=== PATIENT | male | born 1960 | race Caucasian/White ===

== ENCOUNTER 2024-11-09 07:37 | Inpatient (IN) | payer BC, SELFPAY ==
[2024-11-08] VITALS (13 sets, daily range): BP systolic 150–191; BP diastolic 95–118; BMI 28.4
--- NOTE | 2024-11-08 07:20 | ED.GENMED ---
History of Present Illness
General
Chief Complaint: Numbness
Source: patient
Exam Limitations: none
Time Seen by Provider: 11/08/24 06:44
Nursing documentation reviewed up to this point in time: agreed with
History of Present Illness
History of Present Illness:
Patient with history of TIA on 81 mg aspirin daily, presents to ED after waking up this morning at 5:30 AM with recurrent right arm numbness sensation. Patient states that his arm feels as though he 'slept on it'. Denies fever or chills. Denies
headache. Denies neck pain. Denies dizziness. Denies blurred vision. Denies weakness. Denies difficulty with ambulation. Denies difficulty with speech or swallowing. Patient and spouse report that approximately 12 years ago, patient has
similar right arm numbness which progressed to slurred speech, and was diagnosed with TIA at that time. Patient has not had any recurrent symptoms since then. Patient medical history is significant for hypertension and patient is a daily smoker.
Denies recent illness. Denies recent change in medications or diet. Deny recent trauma. Denies change in level of activities.
Past History
Past History
ED Past Medical History: GERD, HTN and Hypercholesterolemia
ED Past Surgical History: Other (Noncontributory)
Social History
Tobacco: Smoker
Alcohol: Occasional
Drug: None
Personal:
Living: with family
Employment: Employed (social worker masters)
Family History
Family History: Other (Noncontributory)
Review of Systems
Review of Systems
Allergies reviewed?: Yes
All Other Systems: ROS reviewed and negative except as documented in HPI and ROS
Constitutional: Reports no symptoms
EENT: Reports no symptoms
Respiratory: Reports no symptoms
Cardiac: Reports no symptoms
ABD/GI: Reports no symptoms
Musculoskeletal: Reports no symptoms
Skin: Reports no symptoms
Neurological: Reports numbness
Phy Exam
Physical Exam
Physical Exam:
Physical Exam
General: no apparent distress, not acutely ill. afebrile
Head: nc/at. eomi
Neck: supple. no meningeal signs.
Heart: s1/s2 regular rate and rhythm, no murmur. equal radial pulses.
Lungs: no acute respiratory distress. clear bilaterally
Abdomen: normal bowel sounds. not tender.
Neuro: alert and oriented x 3. no focal sensory/motor deficit. normal speech. normal gait.
Skin: no rash
Psychiatric: well kept. interactive and cooperative
Extremities: no edema. no calf tenderness.
Course
Orders/Labs/Results
Orders:
Orders
11/08/24 07:05
CT Head W/o Iv Contrast Urgent
Comment:
Reason For Exam: RUE numbness
11/08/24 07:06
Electrocardiogram (*1) Urgent
Reason for Study: Vertigo / Dizzy
EKG- Treatment ONCE
11/08/24 07:12
NEUROLOGY CONSULT Urgent
Consulting Provider: Zeus Mathew
Was physician already notified: Yes
Reason for consult: RUE numbness
11/08/24 07:14
Complete Blood Count/No Diff Urgent
Comprehensive Metabolic Panel Urgent
Magnesium Urgent
11/08/24 09:35
Clopidogrel Bisulfate [Plavix] 300 mg PO NOW STA
11/08/24 09:36
MA Neck With Contrast Routine
Reason For Exam: stroke
OK for patient to be off Cardiac Monitoring for MRI: Yes
Recent pill cam endoscopy?: No
Pacemaker/Defibrillator?: No
Brain Aneurysm Clips?: No
Have you ever worked with metal? grinding metal? welding?: No
Cochlear(ear) implants?: No
Does Pt have a Temp Sensing Cath?: No
Does the patient have IV access?: Yes
Does the patient have any stents?: No
MR Brain Without Contrast Routine
Comment:
Reason For Exam: stroke, right arm ataxia
Recent pill cam endoscopy?: No
11/08/24 09:37
MA [place] Routine
Comment:
Reason For Exam: intracranial stenosis
Recent pill cam endoscopy?: No
11/08/24 11:02
Admit/Transfer Patient As Directed
Co-Sign Provider:
Level of Care: Observation services
Assign to:: Telemetry
Physician / Group: diallo/hospitalist
Diagnosis: RUE numbness. r/o CVA
Reason for Telemetry: CVA/TIA
Date to Stop Telemetry: 11/11/24
Time to Stop Telemetry: 11:00
11/08/24 11:03
PRN Pain Medication Management As Directed
May give lesser potent ordered pain med per pt: Yes
preference::
Protocol:: Medication orders for pain may be administered in a
manner that supports deferring to patient preference
when the pt is:
- Requesting an ordered lesser potent pain medication.
Least to most potent pain medications are defined
as: acetaminophen < NSAID < tramadol < opioids
(morphine, oxycodone, hydromorphone).
- Requesting a lesser dose of the same medication IF
ORDERED.
- Requesting a less intrusive route of administration
if both routes are prescribed by the provider (PO <
IV).
11/08/24 11:04
Code Status As Directed
Resuscitation Status: Full Code
11/08/24 Dinner
Cholesterol Lowering
At Your Request: Full Participation
Does patient need a safe tray?: No
11/08/24 15:20
Acetaminophen [Tylenol/Feverall] 650 mg RECTAL Q4HPRN PRN
Acetaminophen [Tylenol] 650 mg PO Q4HPRN PRN
11/08/24 15:20
Case Management Consult ONCE
Case Management Consult: Discharge Planning
Comment: stroke/tia
DIETARY CONSULT Routine
Reason for Consult: stroke/TIA
Disaster Director Urgent
Activity As Directed
Activity Level: Out of Bed-Early Mobility
NIH Stroke Scale As Directed
Directions: Per protocol
Comment: every shift and with any change in condition or mental status
Neurological Checks As Directed
Frequency: q4h
Additional Instructions:: q4h x 24h upon admission to the floor, then qshift & with any change in condition
and mental status
Patient Education As Directed
Type: Stroke education packet
Comment: provide to patient and family
Pneumatic Compression Sleeves As Directed
Type: Knee high
Swallow Screening CVA/TIA ONLY As Directed
Comment: NPO until swallowing screening completed
If patient FAILS swallow screening:: NPO, Speech Therapy consult, Aspiration Precautions
If patient PASSES swallow screening, diet:: Cholesterol Lowering
Above diet order entered?: Yes- passed screening
Vital Signs As Directed
Frequency: Per unit guidelines
Ot Eval And Treat Routine
Pt Eval And Treat Routine
Activity Level: Out of Bed-Early Mobility
Speech Therapy Eval & Treat Routine
DX Deep Vein Thrombosis Video Routine
11/08/24 16:00
Flush (0.9% Sodium Chloride) [Flush (Nss)] See Dose Instructions IV PER PROTOCOL
11/08/24 18:00
Atorvastatin [Lipitor] 40 mg PO QPM
11/08/24 22:00
Pantoprazole [Protonix] 40 mg PO HS
11/09/24 08:00
Aspirin Low Dose EC [Aspir Low (Enteric Coated)] 81 mg PO DAILY
Clopidogrel Bisulfate [Plavix] 75 mg PO DAILY
Labetalol [Trandate] 100 mg PO BID
Labetalol [Trandate] 200 mg PO BID
11/09/24 08:01
BMP [Basic Metabolic Panel] IN AM
CBC/With Diff [Complete Blood Count/With Diff] IN AM
Cardiovascular Evaluation IN AM
Glycohemoglobin (HgbA1c) IN AM
11/09/24 22:00
Amlodipine [Norvasc] 10 mg PO HS
Lisinopril [Zestril] 40 mg PO HS
11/11/24 11:00
DC Protocol for Telemetry ONCE
Abnormal Lab Results
11/08/24
07:14
MCH 31.1 H pg
(27.0-31.0)
Chloride 108 H mmol/L
(98-107)
BUN 25 H mg/dl
(9-20)
Creatinine 1.7 H mg/dL
(0.7-1.3)
Glucose 110 H mg/dl
(70-99)
11/08/24 07:14
11/08/24 07:14
Vital Signs
Initial and Last Documented VS:
Initial Vital Signs
Temp Pulse Resp BP Pulse Ox
98.0 F 78 16 150/109 98
11/08/24 06:34 11/08/24 06:34 11/08/24 06:34 11/08/24 06:34 11/08/24 06:34
Last Documented Vital Signs
Temp Pulse Resp BP Pulse Ox
97.8 F 78 16 144/96 98
11/09/24 15:26 11/09/24 15:26 11/09/24 15:26 11/09/24 15:26 11/09/24 15:26
MDM/Problems Addressed
MDM/Problems Addressed:
Patient presenting with subjective right upper extremity numbness, without focal objective deficit noted on exam. At the time of evaluation ED, patient with NIH stroke score of 0. Patient is not a candidate for tenecteplase treatment at this time.
Will place CT head without contrast order immediately and consult neurology for an evaluation.
CT head: No acute findings.
Patient evaluated in ED by Dr. Mathew, neurology. In light of patient's right upper extremity ataxia noted on exam, which is different from his previous presentation, does recommend admission to the hospitalist for further evaluation and treatment,
including starting aspirin and Plavix load.
*EKG
Interpreted by ED Provider?: Yes
EKG Intrepretation Date: 11/08/24
Heart Rate: 77
Rate: normal
Rhythm: sinus
[place]: normal axis
*Critical Care Note
Total Time (30-74mins, 75-104mins- exclusive of procedures): Not Applicable
ED Attending Note
-
Portions of this chart may have been created with voice recognition software.� Occasional wrong word or��sound alike� substitutions may have occurred due to the inherent limitations of voice recognition software.
Discharge Plan
Departure
Patient Disposition: Admit
Date of Disposition: 11/08/24
Time of Disposition: 09:20
Admit to: Telemetry
Presentation/result/management discussed w/ accepting MD/DO: Hospitalist
Discharge Problem:
Ataxia of upper extremity
Interventions
Interventions:
*General Assessment Last Done: 11/08/24 06:34
*Neglect/Abuse Screening Last Done: 11/08/24 07:17
*ED COVID-19 Vaccine History Last Done: 11/08/24 06:34
*Nursing Disposition Last Done: 11/08/24 15:11
ED- Neurological Assessment Last Done: 11/08/24 12:08
Discharge Date and Time
Discharge Date/Time: 11/08/24 15:13
[2024-11-08 07:41] LABS: ALT (SGPT) 17 U/L (0-50); AST (SGOT) 21 U/L (17-59); Albumin 3.8 g/dl (3.5-5.0); Alkaline Phosphatase 97 U/L (38-126); Blood Urea Nitrogen 25 mg/dl (9-20); Carbon Dioxide 25 mmol/L (22-30); Chloride 108 mmol/L (98-107); Estimated Creatinine Clearance 50 ml/min; Glucose 110 mg/dl (70-99); Hematocrit 44.2 % (39.0-52.0); Hemoglobin 15.4 g/dL (13.0-18.0); Magnesium 1.7 mg/dl (1.6-2.3); Mean Corp Hgb Conc. 34.8 g/dL (33.0-37.0); Mean Corpuscular Hgb 31.1 pg (27.0-31.0); Mean Corpuscular Volume 89.3 fL (80.0-94.0); Platelet Count 263 10^3/uL (130-400); Potassium 4.3 mmol/L (3.5-5.1); Red Blood Cell Count 4.95 10^6/uL (4.70-6.10); Red Cell Dist. Width 11.9 % (11.5-14.5); Sodium 141 mmol/L (135-145); Total Bilirubin 0.4 mg/dl (0.2-1.3); Total Protein 6.4 g/dl (6.3-8.2); White Blood Cell Count 6.8 10^3/uL (4.8-10.8); eGFR 44.46
[2024-11-08] MEDS: PLAVIX 300 MG PO (10:42)
--- NOTE | 2024-11-08 11:05 | CON.NEURO ---
Neuro Assessment/Plan
Assessment
patient history of stroke 2009, exam with RUE ataxia which is a new finding for him
therefore concern for new stroke/TIA
obtain brain MRI, MRA head/neck
continue ASA 81, load Plavix 300 and start plavix 75 x 21 days
will need to switch from omeprazole to Protonix given Plavix interaction
start Lipitor 40
Plan
obtain brain MRI, MRA head/neck
continue ASA 81, load Plavix 300 and start plavix 75 x 21 days
will need to switch from omeprazole to Protonix given Plavix interaction
start Lipitor 40
Consultation
Order
Date of Consultation: 11/08/24
Requesting Provider: Siva Haney
Reason for Consult: Stroke
Subjective/Objective
Subjective Data
Date of Service: November 08, 2024
He is a 64 year old right handed man, woke up this morning 5:30 am with right upper extremity numbness, which has since improved. He denies speech changes, vision loss, double vision, limb weakness
h/o stroke 2008, Left parietal, at that time presented with right sided numbness and made a full clinical recovery.
Objective Data
Vital Signs
Temp Pulse Resp BP Pulse Ox
36.7 C 71 16 154/95 97
11/08/24 06:34 11/08/24 08:00 11/08/24 07:30 11/08/24 07:29 11/08/24 07:30
Lab Results
11/08/24 07:14
11/08/24 07:14
Sodium 141 mmol/L (135-145) 11/08/24 07:14
Potassium 4.3 mmol/L (3.5-5.1) 11/08/24 07:14
BUN 25 mg/dl (9-20) H 11/08/24 07:14
Glucose 110 mg/dl (70-99) H 11/08/24 07:14
Calcium 9.0 mg/dl (8.4-10.2) 11/08/24 07:14
Patient Allergies
Penicillins Allergy (Verified 11/08/24 06:36)
Unknown
CVA Assessment
NIH Stroke Score
Level of Consciousness: 0 - Alert
LOC Questions: 0-Answers both correctly
LOC Commands: 0-Performs both correctly
Best Horizontal Gaze: 0-Normal
Visual [place]: 0=Normal, no visual loss
Facial Palsy: 0=Normal, symmetrical
Motor - Right Arm: 0=No drift 10 seconds
Motor - Left Arm: 0=No drift 10 seconds
Motor - Right Le-No drift 5 seconds
Motor - Left Le-No drift 5 seconds
Limb Ataxia: 1-Present in one limb
Sensation: 0-Normal
Best Language: 0-No aphasia
Dysarthria: 0-Normal
Extinction and Inattention: 0-No abnormality
Total Score:: 1
Physical Exam
-
AAOx3 speech clear, language intact
VFF, EOMI, face symmetric,
full strength b/l UE/LE
sensation intact touch/pin/vibration
DTR 1+ symmetric
Finger to nose with RUE ataxia
Medications
-
Active Medications
Generic Name Dose Route Start Last Admin
Trade Name Freq PRN Reason Stop Dose Admin
Atorvastatin Calcium 40 mg 11/08/24 18:00
Atorvastatin (Lipitor) 40 Mg Tablet PO 12/06/24 17:59
QPM LEXUS
Clopidogrel Bisulfate 75 mg 11/09/24 08:00
Clopidogrel 75 Mg Tablet PO 11/29/24 08:01
DAILY LEXUS
Home Medications
�Medication �Instructions �Recorded
amlodipine 10 mg tablet 10 mg PO HS Blood Pressure 10/10/23
aspirin 81 mg tablet,delayed 81 mg PO DAILY Blood Clot 10/10/23
release Prevention/Tx
labetalol 300 mg tablet 300 mg PO BID Blood Pressure 10/10/23
lisinopril 40 mg tablet 40 mg PO HS Blood Pressure 10/10/23
omeprazole 40 mg capsule,delayed 40 mg PO HS Gastrointestinal Issue 10/10/23
release
--- NOTE | 2024-11-08 11:06 | HPS.HSE ---
Family Physician
-
Family Physician: Jerod Malhotra
Chief Complaint
-
Right upper extremity tingling
History of Present Illness
64-year-old male extensive past medical history as below who is presenting from home with right upper extremity tingling sensation. Patient states he noticed tingling sensation approximately 5:30 AM this morning. States he felt like he was
sleeping on his right arm. States the tingling persisted and he was concerned that he was having another TIA and decided come into the ER. Patient denies any headache, vision problems, neck pain, weakness in the right upper extremity. Denies
generalized weakness anywhere else. Denies any chest pain or shortness of breath. States of whitecoat hypertension and blood pressure checked at PCP office is usually normal. Smokes cigarettes on a daily basis for prolonged period of time.
States of rare intake of alcohol.
Medical History
Past Medical History
Past Medical History: Reports Other
Additional Past Medical History:
Primary hypertension
Whitecoat hypertension
GERD
History of TIA
Past Surgical History: Reports None
Social History
Tobacco: Smoker
Alcohol: Occasional
Personal:
Living: With Family
Family History
Family History: Not pertinent
Allergies / Home Medications
Allergies reflects when Allergies were last updated in [employer].
Home Medications with original date entered in [employer]
Allergy/Medication List:
Allergies
Allergy/AdvReac Type Severity Reaction Status Date / Time
Penicillins Allergy Unknown Verified 11/08/24 06:36
Home Medications
amlodipine 10 mg tablet 10 mg PO HS Blood Pressure 10/10/23
aspirin 81 mg tablet,delayed release 81 mg PO DAILY Blood Clot Prevention/Tx 10/10/23
labetalol 300 mg tablet 300 mg PO BID Blood Pressure 10/10/23
lisinopril 40 mg tablet 40 mg PO HS Blood Pressure 10/10/23
omeprazole 40 mg capsule,delayed release 40 mg PO HS Gastrointestinal Issue 10/10/23
Review of Systems
-
History Source: Patient and Family (Spouse at bedside)
A 12 point ROS was completed and negative except as noted: Yes
Physical Exam
Vital Signs
Vital Signs
Temp Pulse Resp BP Pulse Ox
98.0 F 71 16 154/95 97
11/08/24 06:34 11/08/24 08:00 11/08/24 07:30 11/08/24 07:29 11/08/24 07:30
Physical Exam
General: Well Developed, Well Nourished and No Apparent Distress
HEENT: NormoCephalic, Anicteric, Moist mucous membranes and Atraumatic
Respiratory: Clear
Cardiac: S1/S2 and Regular Rhythm; No Murmur or Rub
GI: Soft, Non Tender, Non Distended and Normal Bowel Sounds; No Organomegaly
Rectal: Deferred by Provider
Genito-urinary: Deferred by me
Musculoskeletal: No Clubbing, No Cyanosis and No Edema
Skin: No Rash
Neuro: Awake, Alert, Oriented, AO x 3, No Motor Deficits, Nonfocal/grossly intact, Cranial Nerves Intact and No Sensory Deficits; No Slurred Speech, Facial Droop, Tremors or Sedated
Psych: Calm
Laboratory Results
-
11/08/24 07:14
11/08/24 07:14
Laboratory Results
Total Bilirubin 0.4 mg/dl (0.2-1.3) 11/08/24 07:14
AST 21 U/L (17-59) 11/08/24 07:14
ALT 17 U/L (0-50) 11/08/24 07:14
Alkaline Phosphatase 97 U/L (38-126) 11/08/24 07:14
Data Reviewed
-
CT Scan: Report Reviewed by me, Discussed with Patient and Discussed with Family
Lab Data: Labs Reviewed by me, Discussed with Patient and Discussed with Family
Impression/Plan
-
#Right upper extremity numbness likely secondary TIA versus rule out CVA
#Hx of Right frontal CVA
CT head with old right frontal lobe infarct
Check MRI of the brain and MRA of the head and neck
Monitor patient telemetry to assess for any arrhythmia including atrial fibrillation
No permissive hypertension. Treat for blood pressure greater than 220/110
Hold blood pressure medication
Continue with aspirin and Plavix added. Status post Plavix load in the ER.
Check lipid panel A1c
NIH stroke scale and neurochecks
PT and OT
Neurology evaluation
#Primary hypertension
#Whitecoat hypertension
Hold blood pressure meds for 24 hours and restart tomorrow
As needed only if blood pressure greater than 220/110
Can restart tomorrow home regimen of labetalol, lisinopril and Norvasc
#CKD stage 3
Patient have spouse was unaware of elevated creatinine
Outpatient blood work 10/10/2023 with elevated creatinine
Recommended to follow-up outpatient and make appointment with belt polisher
Likely secondary to hypertensive nephropathy
#Tobacco abuse
Counseled on cessation as tobacco abuse significant risk factor for TIA CVAs
Offered nicotine patch patient refused
Due to prophylaxis SCDs
Discussed with spouse at bedside in details
I spent a total of 78 minutes with the patient or on the floor. More than 50% of this time involved counseling and coordination of care.
[2024-11-08] MEDS: LIPITOR 40 MG PO (18:25)
[2024-11-08] MEDS: PROTONIX 40 MG PO (21:02)
[2024-11-09] VITALS (7 sets, daily range): BP systolic 144–204; BP diastolic 96–120
[2024-11-09] MEDS: TRANDATE 100 MG PO (07:51)
[2024-11-09] MEDS: TRANDATE 200 MG PO (07:51)
[2024-11-09] MEDS: ASPIR LOW (ENTERIC COATED) 81 MG PO (07:52)
[2024-11-09] MEDS: PLAVIX 75 MG PO (07:52)
[2024-11-09 08:47] LABS: % Basophils 0.9 % (0-2); % Eosinophils 3.6 % (0-6); % Immature Granulocytes 0.1 % (0-0.5); % Lymphocytes 18.4 % (20.5-51.1); % Monocytes 5.2 % (1.7-9.3); % Neutrophils 71.8 % (42.2-75.2); Absolute Basophils 0.1 10^3/uL (0-0.2); Absolute Eosinophils 0.3 10^3/uL (0-0.7); Absolute Lymphocytes 1.5 10^3/uL (1.2-3.4); Absolute Monocytes 0.4 10^3/uL (0.1-0.6); Absolute Neutrophils 5.8 10^3/uL (1.4-6.5); Hematocrit 47.6 % (39.0-52.0); Hemoglobin 16.7 g/dL (13.0-18.0); Mean Corp Hgb Conc. 35.1 g/dL (33.0-37.0); Mean Corpuscular Hgb 31.3 pg (27.0-31.0); Mean Corpuscular Volume 89.1 fL (80.0-94.0); Mean Platelet Volume 9.2 fL (7.4-10.4); Nucleated Red Blood Cells % 0 % (-); Platelet Count 298 10^3/uL (130-400); Red Blood Cell Count 5.34 10^6/uL (4.70-6.10); Red Cell Dist. Width 11.8 % (11.5-14.5); White Blood Cell Count 8.1 10^3/uL (4.8-10.8)
[2024-11-09 09:34] LABS: Blood Urea Nitrogen 25 mg/dl (9-20); Estimated Creatinine Clearance 53 ml/min; Glucose 106 mg/dl (70-99); eGFR 47.82
[2024-11-09 09:35] LABS: Calcium 9.6 mg/dl (8.4-10.2); Carbon Dioxide 23 mmol/L (22-30); Chloride 105 mmol/L (98-107); HDL Cholesterol 36 mg/dl; LDL Cholesterol, Calculated 115 mg/dl; Potassium 4.8 mmol/L (3.5-5.1); Sodium 138 mmol/L (135-145); Total Cholesterol 227 mg/dl (50-199); Triglyceride 383 mg/dl (10-149); Very Low Density Lipoprotein 76 mg/dl (0-30)
--- NOTE | 2024-11-09 11:26 | PTOTSP ---
SPEECH THERAPY SWALLOW AND SPEECH/LANGUAGE/COGNITIVE COMMUNICATION EVALUATION:
Patient exhibits grossly functional oropharyngeal swallow at this time. Patient remains at risk for dysphagia/aspiration given acute and chronic CVAs and GERD. Recommend continue Regular texture diet, thin liquids. Medications whole with liquid, one
at a time. Aspiration precautions: Upright positioning; Small single sips/bites; Slow rate of intake; GERD precautions. ST to follow briefly, assess diet tolerance and modify as appropriate, monitor CXR and labs, and determine indication for VSE as
appropriate.
Patient exhibits WFL to slight dysarthria, mild expressive language impairments, mild receptive language impairments, and moderate cognitive communication impairments characterized by difficulty with: STM, attention, visuospatial skills, executive
functioning tasks, insight, awareness into deficits, mild word finding difficulties, processing speed during structured tasks. MOCA version 8.1 was administered; Patient achieved a score of 13/30, indicating below normal level (greater than or equal
to 26/30). Subscores as follows: Visuospatial/Executive functionin/5. Namin/3. Attention: 3/6. Language: 0/3. Abstraction: 0/2. Delayed Recall: 0/5. Orientation: 6/6. ST services are indicated at the acute care level and continued upon
discharge.
RECOMMEND:
1) Regular texture diet, thin liquids
2) Medications whole with liquid, one at a time
3) Aspiration precautions: Upright positioning; Small single sips/bites; Slow rate of intake; GERD precautions
4) ST to follow briefly, determine indication for VSE as appropriate
5) ST services for speech/language and cognitive communication therapy services are indicated at the acute care level and continued upon discharge
[2024-11-09 11:32] LABS: Glycohemoglobin (HgbA1c) 5.7 % (4.0-5.6)
[2024-11-09] MEDS: APRESOLINE 10 MG IV (12:42)
--- NOTE | 2024-11-09 13:49 | W.PN.HOSP.TC ---
Addendum entered and electronically signed by Roman Bradley MD 11/09/24 14:10:
Discussed with patient once again at bedside. Patient already received heart monitor.
Patient says he has whitecoat hypertension blood pressure usually elevated in healthcare settings. Recommended to follow with primary doctor and check blood pressure at home.
Also counseled once again on complete tobacco cessation. Also mention of significantly elevated cholesterol and triglyceride level. Counseled on significant diet control. Verbalized understanding to be started on Lipitor.
Patient understand to continue dual antiplatelet agents for additional 20 days and then continue Plavix. Understand omeprazole had been switched to pantoprazole.
Patient will require outpatient speech and occupational therapy. Prescription provided.
Verbalized understanding to be discharged home with outpatient cardiology follow-up for next week.
Original Note:
Today's Communication/Plan
-
asa/plavix
bp control
Op cardiology f/u next week for ALEJANDRINA
Assessment / Plan
Assessment / Plan
#Right upper extremity numbness likely CVA
#Hx of Right frontal CVA
CT head with old right frontal lobe infarct
MRI of the brain with multiple infarct lesion noted. MRA of the head and neck negative for acute severe stenosis or aneurysm.
MRI of the brain with multiple CVA concern for embolic phenomenon. Discussed with cardiology who placed patient on Holter monitor and will see in the office next week and schedule for ALEJANDRINA. And per cardiology no need for TTE while here as ALEJANDRINA is
planned for next week.
Continue with aspirin and Plavix added. Status post Plavix load in the ER. Discussed with neurology. Plan for dual antiplatelet regimen for 21 days to continue Plavix stop aspirin as patient had strokes on aspirin.
A1c of 4.7. Triglycerides significantly elevated. High dose of statin.
NIH stroke scale and neurochecks
PT and OT recommend outpatient OT.
Counseled patient on strict blood pressure control and complete tobacco cessation.
#Primary hypertension
#Whitecoat hypertension
Restart home blood pressure medication. Recommend to follow with PCP for strict blood pressure control. Patient verbalized understanding.
#CKD stage 3
Patient have spouse was unaware of elevated creatinine
Outpatient blood work 10/10/2023 with elevated creatinine
Recommended to follow-up outpatient and make appointment with spouter
Likely secondary to hypertensive nephropathy
#Tobacco abuse
Counseled on cessation as tobacco abuse significant risk factor for TIA CVAs
Offered nicotine patch patient refused
DVT prophylaxis SCDs
Discussed with cardiology and neurology.
More than 30 minutes spent in discharge including
Final examination of the patient
Summarizing hospital stay
Instructions for continuing care to all relevant caregivers
Preparation of discharge records, prescriptions, and referral forms
Total time spent (in minutes): 53
Anticipated Discharge: Today
Subjective/Interval History
-
Date of Service: November 09, 2024
states feeling back to normal
denies any RUE weakness/numbing/tingling
Objective Data
-
Labs:
Laboratory Results
11/09/24
08:01
WBC 8.1
Hgb 16.7
Hct 47.6
Plt Count 298
Sodium 138
Potassium 4.8
Chloride 105
Carbon Dioxide 23
BUN 25 H
Creatinine 1.6 H
Glucose 106 H
Calcium 9.6
Vital Signs:
Vital Signs
Temp Pulse Resp BP Pulse Ox
97.8 F 78 18 170/100 94
11/09/24 11:23 11/09/24 11:23 11/09/24 11:23 11/09/24 12:42 11/09/24 11:23
I&O
11/08/24 11/09/24 11/10/24
06:59 06:59 06:59
Intake Total 720 / 720
Balance 720 / 720
Physical Exam
-
General: Well Developed and No Apparent Distress
HEENT: Normocephalic, Atraumatic and Moist Mucous Membranes
Respiratory: Clear to Auscultation
Cardiac: Regular Rhythm and S1/S2; Negative Murmur, Rub or Gallop
GI: Soft, Nontender, Nondistended and Normal Bowel Sounds; Negative Organomegaly
Rectal: Deferred by Provider
Musculoskeletal: No Clubbing, No Cyanosis and No Edema
Skin: Negative Rash
Neuro: Awake, Alert, Oriented, AO x 3, No Motor Deficits, Nonfocal/Grossly Intact and No Sensory Deficits; Negative Slurred Speech or Facial Droop
Psych: Calm
--- NOTE | 2024-11-09 14:10 | W.DCSUMMARY ---
Discharge Summary
Discharge Data
Date of Admission: 11/08/24
Date of Discharge: 11/09/24
-
Pending Results: No
Hospital Course
65 male past medical history of CVA, primary hypertension, whitecoat hypertension who is presenting from home with right upper extremity weakness. Patient went CT of the head which showed old right frontal lobe infarct. Patient was eval by
neurology. MR brain showed there are multiple foci of acute to subacute infarction as described, the largest at the left frontoparietal junction, mainly involving the precentral cortex and adjacent white matter. Additionally, there are multiple
regions of old infarction, which have occurred since examination in 2008. 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
stable since examination 2008. On sagittal images, at C3-4, suggestion of compression of the cervical spinal cord and probably a degree of central canal stenosis. Paranasal sinus disease as described. MRA head and neck Approximately 25% diameter
reduction involving the proximal right internal carotid artery, with no evidence to suggest hemodynamically significant stenosis. No significant narrowing involving the left carotid bulb or proximal left internal carotid artery. Dominant left
vertebral artery. Small caliber right vertebral artery terminates as the posterior inferior cerebellar artery, considered normal variation. No significant narrowing of the left vertebral artery or the basilar artery. No significant narrowing of the
proximal portion of the posterior cerebral arteries. Patient was continued on aspirin while here. Patient received Plavix dose and subsequently was started on Plavix 75 mg daily. Upon discharge plan will be to continue dual antiplatelet agents
for additional 20 days then stop aspirin continue Plavix. MRI of the brain with suspected embolic phenomena and discussed case with Dr. Hoskins. Patient will receive Holter monitor here and will need to be monitored for arrhythmia. Patient will
see cardiology in the office where ALEJANDRINA will be scheduled as outpatient. Per cardiology no need for inpatient TTE. Discussed with neurology who agreed with the plan. Patient with elevated cholesterol was also started on statin. Patient was
counseled multiple times on complete tobacco cessation. Patient says he has whitecoat hypertension blood pressure usually elevated in healthcare settings. Recommended to follow with primary doctor and check blood pressure at home. Also mention of
significantly elevated cholesterol and triglyceride level. Counseled on significant diet control. Understand omeprazole had been switched to pantoprazole. Patient will require outpatient speech and occupational therapy. Prescription provided.
Verbalized understanding to be discharged home with outpatient cardiology follow-up for next week.
Discharge Plan
-
Patient Disposition: Home (Routine Discharge)
Discharge Diagnosis/Procedures: Stroke
Hyperlipidemia
Condition: Fair
Diet: Low Cholesterol
Activity: No restrictions
Driving Restrictions: As prior to admission
Others Tests: you will have a 14 day patient monitor to be placed prior to discharge
Other Services: OT and ST
Activity Restrictions/Additional Instructions:
Take aspirin and Plavix together for additional 20 days then stop aspirin continue with Plavix.
Instructions: Quitting smoking for adults, Stroke - Discharge instructions, Harmful health effects of smoking, BLOOD PRESSURE
Referrals:
Yon Coleman DO [Active] - 11/14/24 10:00 am (You have a cardiology appointment at the [place] office. Please call with questions. )
Luisito Barrera MD [Active] - in one to two months
Jerod Malhotra MD [Family Provider] - in less than 1 week (Follow-up with primary doctor or cardiology for blood pressure control)
Additional Discharge Medication Instructions: Omeprazole was discontinued.
Prescriptions:
New
clopidogrel 75 mg Tablet
75 mg PO DAILY 30 Days Qty: 30 0RF
pantoprazole 40 mg Tablet,Delayed Release (Dr/Ec)
40 mg PO HS 30 Days Qty: 30 0RF
atorvastatin 40 mg Tablet
40 mg PO QPM 30 Days Qty: 30 0RF
Continued
amlodipine 10 mg Tablet
10 mg PO HS
labetalol 300 mg Tablet
300 mg PO BID
lisinopril 40 mg Tablet
40 mg PO HS
aspirin 81 MG tablet,delayed release (DR/EC)
81 mg PO DAILY Qty: 20 0RF
Discontinued
omeprazole 40 mg Capsule,Delayed Release(Dr/Ec)
40 mg PO HS
Discharge Orders:
Discharge Patient (As Directed); Ordered 11/09/24
Ordered By: Roman Bradley
Discharge Date and Time
Discharge Date/Time: 11/09/24 15:41
Print Language: THAI
--- NOTE | 2024-11-09 14:22 | CM ---
Patient has been switched to inpatient patient made aware, patient lives with spouse in a 1 story home, patient is independent with adl's and ambulation, no dme, patient drives, home when stable. Recommendation is for outpatient OT after discharge,
prescription requested from physician. no needs.
PCP: Dr. Malhotra
Pharmacy: [facility] in [place]
== END 2024-11-09 15:41 | disposition home or self-care (01) | DRG 66 ==
LOC: 4 WEST ACU 07:37
PROVIDERS: ADMITTING PHYSICIAN Hospitalist; CONSULT PHYSICIAN Psychiatry & Neurology Clinical Neurophysiology; EMERGENCY PHYSICIAN Emergency Medicine; FAMILY PHYSICIAN Internal Medicine
DX: I63.9 Cerebral infarction, unspecified (principal); I12.9 Hypertensive chronic kidney disease with stage 1 through stage 4 chronic kidney disease, or unspecified chronic kidney disease; N18.30 Chronic kidney disease, stage 3 unspecified; F17.210 Nicotine dependence, cigarettes, uncomplicated; E78.00 Pure hypercholesterolemia, unspecified; Z79.82 Long term (current) use of aspirin; Z79.02 Long term (current) use of antithrombotics/antiplatelets; Z86.73 Personal history of transient ischemic attack (TIA), and cerebral infarction without residual deficits
CPT/HCPCS: 70450; 70544; 70548; 70551; 80048; 80053; 80061; 83036; 83735; 85025; 85027; 92523; 92610; 93005; 97161; 97166; 99285; A9585

== ENCOUNTER → 2024-11-29 06:55 | Day surgery (SDC) | payer BC, SELFPAY | LOC: CATH 06:55 | PROVIDERS: ATTENDING PHYSICIAN Nuclear Medicine Nuclear Cardiology; FAMILY PHYSICIAN Internal Medicine | DX: I08.3 Combined rheumatic disorders of mitral, aortic and tricuspid valves (principal); I08.8 Other rheumatic multiple valve diseases; I70.0 Atherosclerosis of aorta; Z86.73 Personal history of transient ischemic attack (TIA), and cerebral infarction without residual deficits; Z79.02 Long term (current) use of antithrombotics/antiplatelets; Z79.82 Long term (current) use of aspirin; Z79.899 Other long term (current) drug therapy; I10 Essential (primary) hypertension; K21.9 Gastro-esophageal reflux disease without esophagitis | CPT/HCPCS: 93312; 93320; 93325 ==

== ENCOUNTER 2024-12-07 10:45 | Day surgery (SDC) | payer BC, SELFPAY ==
[2024-12-07 11:05] VITALS: BMI 25.0
--- NOTE | 2024-12-07 12:35 | ITS.CL.IMPLP ---
Tower Control Operator - Implant Loop
Implant Loop
Procedure Report:
ILR
Date of Procedure: December 07, 2024
Patient : [id number]
Procedure: Insertable Loop Recorder Implant.
Indication: Cryptogenic CVA
Implant: Reveal Linq2: [employer]; Model# [id number] Q22; Serial# [id number]
Technique: The patient was prepped and draped in the usual fashion.��Local anesthetic was applied to the left��prepectoral subcutaneous tissue. A subcutaneous pocket was created with blunt dissection. Hemostasis was excellent. The device was
placed in the pocket. The skin was closed with steri-strips. The estimated blood��loss was minimal. There were no complications.
Final Programming: FVT 231 30/40 beats
����������������������������������VT 176 16 beats
����������������������������������Asystole 3 sec
����������������������������������Josue 30 bpm for 4 beats
����������������������������������AF On AF only.
Conclusion: Uncomplicated insertable loop implant.
Recommendation: Routine Reveal care.
cc: Dr. Ricardo Sullivan
== END 2024-12-07 13:09 | disposition home or self-care (01) ==
LOC: CATH 10:45
PROVIDERS: ATTENDING PHYSICIAN Internal Medicine Cardiovascular Disease; FAMILY PHYSICIAN Internal Medicine
DX: Z09 Encounter for follow-up examination after completed treatment for conditions other than malignant neoplasm (principal); Z86.73 Personal history of transient ischemic attack (TIA), and cerebral infarction without residual deficits; I10 Essential (primary) hypertension; E78.2 Mixed hyperlipidemia; I34.0 Nonrheumatic mitral (valve) insufficiency; J44.9 Chronic obstructive pulmonary disease, unspecified; K21.9 Gastro-esophageal reflux disease without esophagitis
CPT/HCPCS: 33285; C1764